=== PATIENT | female | born 1960 | race Caucasian/White ===

== ENCOUNTER 2018-07-03 19:50 | Emergency (ER) | payer BC, OTHER ==
[~2018-07-03] VITALS: Ht 162.6 cm; Wt 73.9 kg
--- OUTSIDE RECORDS SUMMARY | 2018-07-03 19:56 | XMS REPORT ---
Author Author TOÑO PIÑA [facility] Address [address] [place] [address] Care Team Providers [facility] Supervisor Name Role Phone TOÑO PIÑA Unavailable PROBLEMS Type Condition ICD9-CM Code UZG09-CU Code Onset Dates Condition Status SNOMED Code Problem Mixed hyperlipidemia E78.2 Active 709702053 Problem Non-seasonal allergic rhinitis, unspecified chronicity, unspecified trigger J30.89 Active 03859917 Problem Acquired hypothyroidism E03.9 Active 918994236 Problem Hx of hysterectomy, total Z90.710 Active 427787003 ALLERGIES No Information ENCOUNTERS Encounter Location Date Diagnosis [place] [id number] [place] [id number] May, [address] [id number] May, [address] [id number] Jan, Screening for tuberculosis Z11.1 and Visit for TB skin test Z11.1 [place] [id number] [place] [address] [id number] Nov, Acquired hypothyroidism E03.9 ; Screening for tuberculosis Z11.1 ; Mixed hyperlipidemia E78.2 ; Non-seasonal allergic rhinitis, unspecified chronicity, unspecified trigger J30.89 and Wellness examination Z00.00 [place] [id number] [place] [address] [id number] Jan, Acquired hypothyroidism E03.9 ; Mixed hyperlipidemia E78.2 ; Elevated serum creatinine R79.89 and Non-seasonal allergic rhinitis, unspecified chronicity, unspecified trigger J30.89 [place] [id number] [place] [address] [id number] Dec, [address] [id number] Aug, [facility] [place] [address] [place] [address] [id number] [place] [address] [id number] Aug, Hypothyroidism, unspecified E03.9 [facility] [place] [address] [id number] Jul, Hypothyroidism, unspecified E03.9 [facility] [place] [address] [id number] Jul, Acquired hypothyroidism E03.9 and Elevated serum creatinine R79.89 [facility] [place] [address] [id number] Jul, Acquired hypothyroidism E03.9 ; H/O urinary frequency Z87.898 ; Hx of hysterectomy, total Z90.710 and Elevated serum creatinine R79.89 [facility] [place] [address] [id number] Jun, Urge incontinence of urine N39.41 [facility] [place] [address] [id number] Feb, [facility] [place] [address] [id number] Feb, Decreased GFR R94.4 [facility] [place] [address] [id number] Feb, [facility] [place] [address] [id number] Jan, Hypothyroidism, unspecified type E03.9 [facility] [place] [address] [id number] Dec, Urge incontinence of urine N39.41 [facility] [place] [address] [id number] Nov, Decreased GFR R94.4 [facility] [place] [address] [id number] Nov, Hypothyroidism, unspecified type E03.9 [facility] [place] [address] [id number] [place] [address] [id number] Nov, Hypothyroidism, unspecified type E03.9 and Overweight E66.3 [facility] [address] [id number] Sep, Bilateral impacted cerumen H61.23 [facility] [address] [id number] [place] [address] [id number] May, Urge incontinence of urine N39.41 and Hypothyroidism, unspecified type E03.9 [facility] [address] [id number] [place] [address] [id number] Mar, Encounter for immunization Z23 [facility] [address] [address] Mar, [facility] [address] [place] [address] [id number] [place] [address] [id number] Feb, [address] [id number] Nov, Follow-up exam V67.9 ; Reflux 530.81 and Urinary incontinence 788.30 [facility] [address] [place] [id number] [place] [address] [id number] Nov, Unspecified hypothyroidism 244.9 [facility] [address] [id number] [place] [address] [id number] October, Unspecified hypothyroidism 244.9 [facility] [address] [address] Sep, [facility] [address] [place] [id number] [place] [address]- [address] Sep, [facility] [id number] [place] [address]- 2626 Jun, [facility] [address] [id number] [place] [address] [id number] Jun, [facility] [id number] [place] [address]- [address] Jun, [facility] [id number] [place] [address] 25[address] May, [facility] [id number] [place] [address] [id number] May, [facility] [address] [id number] May, [facility] [address] [id number] [place] [id number] May, [facility] [place] [facility] [address] [id number] [place] [address] May, [facility] [place] [facility] [address] [facility] [id number] [place] [address] May, [facility] [address] [id number] [place] [id number] Apr, [facility] [place] [facility] [address] [facility] [id number] [place] [address] Apr, [facility] [place] [facility] [address] [facility] [id number] [place] [address] Apr, [facility] [address] [id number] [place] [id number] Apr, [facility] [place] [facility] [address] [facility] [id number] [place] [address]- [address] Apr, [facility] [address] [id number] [place] [id number] Mar, [facility] [place] [facility] [address] [facility] [id number] [place] [address] Mar, [facility] [address] [id number] [place] [id number] Dec, [facility] [place] [facility] [address] [facility] [id number] [address] Dec, [facility] [address] [id number] [place] [id number] Dec, [facility] [place] [facility] [address] [facility] [id number] [place] [address]- [address] Dec, [facility] [place] [facility] [address] [facility] [id number] [place] [address]- [address] Nov, [facility] [address] [id number] [place] [id number] Nov, [facility] [address] [id number] [place] [id number] October, [facility] [address] [facility] [id number] [place] [address]- [address] October, [facility] [place] [facility] [address] [place] [id number] [place] [address]- [address] Sep, [facility] [address] [facility] [id number] [place] [id number] Sep, [facility] [place] [facility] [address] [facility] [id number] [address] Sep, [facility] [place] [facility] [address] [facility] [id number] [place] [address]- [address] Jul, [facility] [address] [place] [id number] [place] [id number] May, [facility] [place] [facility] [address]00565100[place] [address] May, [facility] [place] [facility] [address]00565100[place] [address] May, [facility] [place] [facility] [address] [place] [id number] [address] May, [facility] [address] [facility] [id number] [place] [id number] May, [facility] [place] [facility] [address] [place] [id number] [address] May, [facility] [address] [facility] [id number] [place] [id number] Apr, [facility] [place] [facility] [address] [facility] [id number] [address]- [address] Apr, [facility] [place] [facility] [address] [facility] [id number] [place] [address] Mar, [facility] [address] [facility] [id number] [place] [id number] Mar, [facility] [place] [facility] [address] [place] [id number] [address] Mar, [facility] [address] [facility] [id number] [place] [address]- [address] Mar, [facility] [address] [id number] [place] [id number] Mar, [facility] [address] [id number] [place] [id number] Jan, [facility] [address] [id number] [place] [id number] Jan, [facility] [address] [id number] [place] [id number] Dec, [facility] [address] [id number] [place] [address] Dec, [facility] [address] [id number] [place] [id number] Nov, [facility] [address] [id number] [place] [address] Nov, [facility] [address] [id number] [place] [id number] Nov, [facility] [address] [id number] [place] [address] October, [facility] [address] [id number] [place] [address] October, [facility] [address] [id number] [place] [id number] Sep, [facility] [address] [facility] [id number] [address]- [address] May, [facility] [place] [facility] [address] [facility] [id number] [place] [address]- [address] May, [facility] [address] [id number] [place]ANC[place] [id number] Apr, [facility] [address] [facility] [id number] [place] [address]- [address] Apr, [facility] [address] [id number] [place] [id number] Mar, [facility] [address] [place] [id number] [address]- [address] Mar, [facility] [address]00565100[place] [address]- [address] Mar, [facility] [id number] [place] [id number] Feb, [facility] [id number] [place] [id number] Feb, [facility] [address] [id number] [place] [address] Jan, [facility] [address] [id number] [place] [id number] Jan, [facility] [id number] [place] [id number] Jan, [facility] [place] [id number] [place] [id number] Dec, [facility] [id number] [place] [address]- [address] Dec, [facility] [place] [id number] [place] [id number] Nov, [facility] [place] [id number] [place] [id number] October, [facility] [address] [id number] [place] [address]24- 2546 Apr, [facility] [address] [place] [address]95- [address] Nov, [facility] [id number] [place] [address]- 2546 Apr, [facility] [address]00565100[place] [address] 2546 Jan, IMMUNIZATIONS No Known Immunizations SOCIAL HISTORY Never Assessed REASON FOR VISIT Medication refill PLAN OF CARE VITAL SIGNS MEDICATIONS Medication Instructions Dosage Frequency Start Date End Date Duration Status Synthroid 88 MCG Orally Once a day 1 tablet on an empty stomach in the morning 24h 30 days Active RESULTS No Results PROCEDURES No Known procedures INSTRUCTIONS MEDICATIONS ADMINISTERED No Known Medications MEDICAL (GENERAL) HISTORY Type Description Date Medical History Hypothyroidism Surgical History skin graphs at age 6 [facility] Surgical History hysterectomy, total with bilateral salpingo-oophorectomy (BSO ) s/p benign tumor Hospitalization History childbirth, surgery
--- OUTSIDE RECORDS SUMMARY | 2018-07-03 19:56 | XMS REPORT ---
Author Author TOÑO PIÑA [facility] Address [address] [place] [address] Care Team Providers Care Poolroom/Poolhall Manager Name Role Phone TOÑO PIÑA Unavailable PROBLEMS Type Condition ICD9-CM Code GAM59-DA Code Onset Dates Condition Status SNOMED Code Problem Mixed hyperlipidemia E78.2 Active 826320772 Problem Non-seasonal allergic rhinitis, unspecified chronicity, unspecified trigger J30.89 Active 36884423 Problem Acquired hypothyroidism E03.9 Active 083299599 ALLERGIES No Known Allergies ENCOUNTERS Encounter Location Date Diagnosis [address] [id number] May, Acquired hypothyroidism E03.9 ; Mixed hyperlipidemia E78.2 and Non- seasonal allergic rhinitis, unspecified chronicity, unspecified trigger J30.89 [place] [id number] [place] [address] [id number] May, [address] [id number] Jan, Screening for tuberculosis Z11.1 and Visit for TB skin test Z11.1 [place] [id number] [place] [address] [id number] Nov, Acquired hypothyroidism E03.9 ; Screening for tuberculosis Z11.1 ; Mixed hyperlipidemia E78.2 ; Non-seasonal allergic rhinitis, unspecified chronicity, unspecified trigger J30.89 and Wellness examination Z00.00 [place] [id number] [place] [address] [id number] Jan, Acquired hypothyroidism E03.9 ; Mixed hyperlipidemia E78.2 ; Elevated serum creatinine R79.89 and Non-seasonal allergic rhinitis, unspecified chronicity, unspecified trigger J30.89 [place] [id number] [place] [address] [id number] Dec, [address] [place] [address] [id number] Aug, [facility] [place] [address] [place] [id number] [place] [address] [id number] Aug, Hypothyroidism, unspecified E03.9 [facility] [place] [address] [place] [id number] [place] [address] [id number] Jul, Hypothyroidism, unspecified E03.9 [facility] [place] [address] [id number] [place] [address] [id number] Jul, Acquired hypothyroidism E03.9 and Elevated serum creatinine R79.89 [facility] [place] [address] [place] [id number] [place] [address] [id number] Jul, Acquired hypothyroidism E03.9 ; H/O urinary frequency Z87.898 ; Hx of hysterectomy, total Z90.710 and Elevated serum creatinine R79.89 [facility] [place] [address] [address] [id number] [place] [address] [id number] Jun, Urge incontinence of urine N39.41 [facility] [place] [address] [id number] Feb, [facility] [place] [address] [id number] Feb, Decreased GFR R94.4 [facility] [place] [address] [place] [id number] [place] [address] [id number] Feb, [facility] [place] [address] [id number] Jan, Hypothyroidism, unspecified type E03.9 [facility] [place] [address] [place] [id number] [place] [address] [id number] Dec, Urge incontinence of urine N39.41 [facility] [place] [address] [id number] [place] [address] [id number] Nov, Decreased GFR R94.4 [facility] [place] [address] [address] [id number] [place] [address] [id number] Nov, Hypothyroidism, unspecified type E03.9 [facility] [place] [address] [place] [id number] [place] [address] [id number] Nov, Hypothyroidism, unspecified type E03.9 and Overweight E66.3 [facility] [address] [place] [id number] [place] [address] [id number] Sep, Bilateral impacted cerumen H61.[address] [id number] May, Urge incontinence of urine N39.41 and Hypothyroidism, unspecified type E03.[address] [id number] Mar, Encounter for immunization Z23 [facility] [address] [address] Mar, [place] [id number] [place] [address] [id number] Feb, [address] [id number] Nov, Follow-up exam V67.9 ; Reflux 530.81 and Urinary incontinence 788.30 [facility] [address] [id number] Nov, Unspecified hypothyroidism 244.9 [place] [id number] [place] [address] [id number] October, Unspecified hypothyroidism 244.9 [facility] [address] [address] Sep, [facility] [address] [address] Sep, [facility] [address] [address] Jun, [facility] [address] [place] [id number] [place] [address] [id number] Jun, [facility] [address] [address] Jun, [facility] [address] [address] May, [place] [id number] [place] [address] [id number] May, [facility] [place] [address] [id number] [place] [id number] May, [facility] [place] [address] [id number] [place] [id number] May, [facility] [place] [facility] [address] [facility] [id number] [place] [address]- [address] May, [facility] [place] [facility] [address] [facility] [id number] [place] [address]- [address] May, [facility] [place] [address] [id number] [place] [id number] Apr, [facility] [place] [facility] [address] [facility] [id number] [place] [address]- [address] Apr, [facility] [place] [facility] [address] [facility] [id number] [place] [address] Apr, [facility] [place] [address] [facility] [id number] [id number] Apr, [facility] [place] [facility] [address] [facility] [id number] [address] Apr, [facility] [place] [address] [facility] [id number][place] [id number] Mar, [facility] [place] [facility] [address] [facility] [id number] [place] [address] Mar, [facility] [place] [address] [id number][place] [id number] Dec, [facility] [place] [facility] [address] [facility] [id number] [place] [address] Dec, [facility] [place] [address] [id number][place] [id number] Dec, [facility] [place] [facility] [address] [facility] [id number] [place] [address] Dec, [facility] [place] [facility] [address] [facility] [id number] [place] [address] Nov, [facility] [place] [address] [facility] [id number][place] [id number] Nov, [facility] [place] [address] [facility] [id number] [place] [id number] October, [facility] [place] [facility] [address] [facility] [id number] [place] [address]- [address] October, [facility] [place] [facility] [address] [facility] [id number] [place] [address]- [address] Sep, [facility] [address] [facility] [id number][place] [id number] Sep, [facility] [place] [facility] [address] [facility] [id number] [place] [address]- 25[address] Sep, [facility] [place] [facility] [address] [facility] [id number] [place] [address]- [address] Jul, [facility] [address] [id number] [id number] May, [facility] [place] [facility] [address]65100[place] [address] May, [facility] [place] [facility] [address] [facility] [id number] [place] [address]- [address] May, [facility] [place] [facility] [address] [place] [id number] [address] May, [facility] [place] [address] [facility] [id number][place] [id number] May, [facility] [place] [facility] [address] [place] [id number] [address]- [address] May, [facility] [place] [address] [facility] [id number][place] [id number] Apr, [facility] [place] [facility] [address] [facility] [id number] [place] [address]- [address] Apr, [facility] [place] [facility] [address] [facility] [id number] [place] [address]- [address] Mar, [facility] [place] [address] [facility] [id number][place] [id number] Mar, [facility] [place] [facility] [address] [place] [id number] [address]- [address] Mar, [facility] [address] [facility] [id number] [place] [address]- [address] Mar, [facility] [place] [address] [id number] [place] [id number] Mar, [facility] [place] [address] [id number] [place] [id number] Jan, [facility] [place] [address] [id number] [place] [id number] Jan, [facility] [place] [address] [id number] [place] [id number] Dec, [facility] [place] [address] [id number] [place] [id number] Dec, [facility] [place] [address] [id number] [place] [id number] Nov, [facility] [place] [address] [id number] [place] [id number] Nov, [facility] [place] [address] [id number] [place] [id number] Nov, [facility] [place] [address] [id number] [place] [id number] October, [facility] [place] [address] [id number] [place] [id number] October, [facility] [place] [address] [id number] [place] [address] Sep, [facility] [address] [facility] [id number] [place] [address]- [address] May, [facility] [place] [facility] [address] [facility] [id number] [place] [address]- 25[address] May, [facility] [place] [address] [id number] [place] [id number] Apr, [facility] [place] [facility] [address] [facility] [id number] [place] [address]- 25[address] Apr, [facility] [address] [id number] [place] [id number] Mar, [facility] [address] [address] Mar, [facility] [address] [place] [id number] [place] [address] Mar, [facility] [place] [address] [id number] [place] [id number] Feb, [facility] [place] [address] [id number] [place] [id number] Feb, [facility] [place] [address] [id number] [place] [id number] Jan, [facility] [place] [address] [id number] [place] [id number] Jan, [facility] [place] [address] [id number] [place] [id number] Jan, [facility] [place] [id number] [place] [id number] Dec, [facility] [id number] [place] [address]- [address] Dec, [facility] [id number] [id number] Nov, [facility] [place] [id number] [place] [address] [id number] October, [facility] [address] [address] Apr, [facility] [id number] [place] [address]- [address] Nov, [facility] [id number] [place] [address]- 6[address] Apr, [facility] [address] [place] [id number] [place] [address]- [address] Jan, IMMUNIZATIONS No Known Immunizations SOCIAL HISTORY Never Assessed REASON FOR VISIT New provider visit- thyroid disorder, med refill Avi BRYSON PLAN OF CARE Activity Details Follow Up 3 months or as indicated by lab Reason:[facility] VITAL SIGNS Height 64.5 in 2018-06-05 Weight 166 lbs 2018-06-05 Temperature 97.4 degrees Fahrenheit 2018-06-05 Heart Rate 76 bpm 2018-06-05 Respiratory Rate 18 2018-06-05 BMI 28.05 kg/m2 2018-06-05 Blood pressure systolic 122 mmHg 2018-06-05 Blood pressure diastolic 68 mmHg 2018-06-05 MEDICATIONS Medication Instructions Dosage Frequency Start Date End Date Duration Status Synthroid 88 MCG Orally Once a day 1 tablet on an empty stomach in the morning 24h Active Zantac 150 MG Orally Once a day 1 tablet at bedtime 24h Active Flonase 50 MCG/DOSE Nasally Once a day 1 spray in each nostril 24h Jul, Active RESULTS No Results PROCEDURES No Known procedures INSTRUCTIONS MEDICATIONS ADMINISTERED No Known Medications MEDICAL (GENERAL) HISTORY Type Description Date Medical History Hypothyroidism Medical History Hx of hysterectomy, total Surgical History skin graphs at age 6 from [facility] Surgical History hysterectomy, total with bilateral salpingo-oophorectomy (BSO ) s/p benign tumor Hospitalization History childbirth, surgery
--- OUTSIDE RECORDS SUMMARY | 2018-07-03 19:56 | XMS REPORT ---
Author Author JOHN FREDERICK Organization [facility] Address [address] [place] [address] Care Team Providers Care Rotor Blade Installer Name Role Phone MELISSA CRYSTALELIZ JOHN Unavailable PROBLEMS Type Condition ICD9-CM Code KQK19-OT Code Onset Dates Condition Status SNOMED Code Problem Mixed hyperlipidemia E78.2 Active 732459109 Problem Non-seasonal allergic rhinitis, unspecified chronicity, unspecified trigger J30.89 Active 79616479 Problem Acquired hypothyroidism E03.9 Active 951276322 Problem Hx of hysterectomy, total Z90.710 Active 926113286 ALLERGIES No Information ENCOUNTERS Encounter Location Date Diagnosis [place] [id number] [place] [address] [id number] Jan, Screening for tuberculosis Z11.1 and Visit for TB skin test Z11.1 [place] [id number] [place] [address] [id number] Nov, Acquired hypothyroidism E03.9 ; Screening for tuberculosis Z11.1 ; Mixed hyperlipidemia E78.2 ; Non-seasonal allergic rhinitis, unspecified chronicity, unspecified trigger J30.89 and Wellness examination Z00.[address] [place] [address] [id number] Jan, Acquired hypothyroidism E03.9 ; Mixed hyperlipidemia E78.2 ; Elevated serum creatinine R79.89 and Non-seasonal allergic rhinitis, unspecified chronicity, unspecified trigger J30.89 [address] [place] [address] [id number] Dec, [address] [place] [address] [id number] Aug, [address] [place] [address] [id number] Aug, Hypothyroidism, unspecified E03.9 [place] [id number] [place] [address] [id number] Jul, Hypothyroidism, unspecified E03.9 [facility] [place] [address] [id number] Jul, Acquired hypothyroidism E03.9 and Elevated serum creatinine R79.89 [facility] [place] [address] [place] [id number] [place] [address] [id number] Jul, Acquired hypothyroidism E03.9 ; H/O urinary frequency Z87.898 ; Hx of hysterectomy, total Z90.710 and Elevated serum creatinine R79.89 [facility] [place] [address] [id number] [place] [address] [id number] Jun, Urge incontinence of urine N39.41 [facility] [place] [address] [id number] Feb, [facility] [place] [address] [id number] Feb, Decreased GFR R94.4 [facility] [place] [address] [id number] Feb, [facility] [place] [address] [id number] Jan, Hypothyroidism, unspecified type E03.9 [facility] [address] [id number] Dec, Urge incontinence of urine N39.41 [facility] [address] [id number] Nov, Decreased GFR R94.4 [facility] [place] [address] [id number] Nov, Hypothyroidism, unspecified type E03.9 [facility] [place] [address] [id number] [place] [address] [id number] Nov, Hypothyroidism, unspecified type E03.9 and Overweight E66.3 [facility] [address] [id number] Sep, Bilateral impacted cerumen H61.23 [facility] [address] [id number] May, Urge incontinence of urine N39.41 and Hypothyroidism, unspecified type E03.9 [facility] [place] [id number] [place] [address] [id number] Mar, Encounter for immunization Z23 [facility] [id number] [place] [address] [id number] 2546 Mar, [facility] [place] [id number] [place] [address] [id number] Feb, [facility] [place] [address] [id number] Nov, Follow-up exam V67.9 ; Reflux 530.81 and Urinary incontinence 788.30 [facility] [place] [address] [id number] Nov, Unspecified hypothyroidism 244.9 [facility] [id number] [place] [address] [id number] October, Unspecified hypothyroidism 244.9 [facility] [id number] [place] [address] 72667- 0556 Sep, [facility] [id number] [place] [address] 40418- 3825 Sep, [facility] [id number] [place] [address] 74208- 4340 Jun, [facility] [id number] [place] [address] [id number] Jun, [facility] [id number] [place] [address]65- [address] Jun, [facility] [id number] [place] [address] [id number] 2545 May, [facility] [id number] [place] [address] [id number] May, [facility] [id number] [place] [address] [id number] May, [facility] [id number] [place] [address] [id number] May, [facility] [place] [facility] [address] [id number] [place] [address] May, [facility] [place] [facility] [address] [facility] [id number] [place] [address] May, [facility] [place] [address] [id number] [place] [id number] Apr, [facility] [place] [facility] [address] [facility] [id number], [place] [address] 2546 Apr, [facility] [place] [facility] [address] [facility] [id number] [place] [address] 2546 Apr, [facility] [place] [address] [facility] [id number] [place] [id number] Apr, [facility] [place] [facility] [address] [facility] [id number] [place] [address] 8[address] Apr, [facility] [place] [address] [facility] [id number][place] [id number] Mar, [facility] [place] [facility] [address] [facility] [id number], [place] [address] Mar, [facility] [place] [address] [id number] [place] [id number] Dec, [facility] [place] [facility] [address] [facility] [id number], [place] [address] Dec, [facility] [place] [address] [facility] [id number][place] [id number] Dec, [facility] [place] [facility] [address] [facility] [id number], [place] [address] Dec, [facility] [place] [facility] [address] [facility] [id number] [place] [address]- 88[address] Nov, [facility] [place] [address] [id number] [place] [id number] Nov, [facility] [place] [address] [id number] [place] [id number] October, [facility] [place] [facility] [address] [facility] [id number], [place] [address] October, [facility] [place] [facility] [address] [id number] [place] [address]- 2546 Sep, [facility] [place] [address] [facility] [id number] [place] [id number] Sep, [facility] [place] [facility] [address] [facility] [id number] [place] [address]- 2546 Sep, [facility] [place] [facility] [address] [facility] [id number] [place] [address]- 25[address] Jul, [facility] [place] [address] [facility] [id number] [place] [id number] May, [facility] [place] [facility] [address] [facility] [id number] [place] [address]- 2546 May, [facility] [place] [facility] [address] [facility] [id number] [place] [address]- 2546 May, [facility] [place] [facility] [address] [id number], [place] [address] May, [facility] [place] [address] [facility] [id number][place] [phone] May, [facility] [place] [facility] [address] [id number], [place] [address] 25[address] May, [facility] [place] [address] [id number][place] [id number] Apr, [facility] [place] [facility] [address] [facility] [id number], [place] [address]- 2546 Apr, [facility] [place] [facility] [address] [facility] [id number], [place] [address]- 2546 Mar, [facility] [place] [address] [facility] [id number][place] [id number] Mar, [facility] [place] [facility] [address] [facility] [id number], [place] [address]- 2546 Mar, [facility] [place] [facility] [address] [facility] [id number], [place] [address]- 2546 Mar, [facility] [place] [address] [facility] [id number] [place] [id number] Mar, [facility] [place] [address] [id number] [place] [id number] Jan, [facility] [place] [address] [id number] [place] [id number] Jan, [facility] [place] [address] [id number] [place] [id number] Dec, [facility] [place] [address] [id number] [place] [id number] Dec, [facility] [place] [address] [id number] [place] [id number] Nov, [facility] [place] [address] [id number] [place] [id number] Nov, [facility] [place] [address] [id number] [place] [id number] Nov, [facility] [address] [id number] [place] [id number] October, [facility] [address] [id number] [place] [id number] October, [facility] [place] [address] [id number] [place] [id number] Sep, [facility] [address], [place] [address] May, [facility] [place] [facility] [address] [facility] [id number], [place] [address] May, [facility] [address] [id number] [place] [id number] Apr, [facility] [place] [facility] [address] [facility] [id number], [place] [address]- [address] Apr, [facility] [address] [id number] [place] [id number] Mar, [facility] [place] [facility] [address] [facility] [id number], [place] [address] Mar, [facility] [place] [facility] [address], [place] [address] Mar, [facility] [address] [id number], [place] [id number] Feb, [facility] [place] [address] [id number][place] [id number] Feb, [facility] [place] [address] [id number] [place] [id number] Jan, [facility] [place] [address] [id number] [place] [id number] Jan, [facility] [place] [address] [id number] [place] [id number] Jan, [facility] [place] [address] [id number] [place] [id number] Dec, [facility] [id number] [place] [address] 18083- 2546 Dec, [facility] [id number], [place] [id number] Nov, [facility] [id number], [place] [id number] October, [facility] [id number] [place] [address] 01227- 6059 Apr, [facility] [id number] [place] [address] 24679- 4677 Nov, [facility] [id number] [place] [address] 37813- 5866 Apr, [facility] [id number] [place] [address] 31755 2545 Jan, IMMUNIZATIONS No Known Immunizations SOCIAL HISTORY Never Assessed REASON FOR VISIT TB TEST Slick RN PLAN OF CARE Activity Details Follow Up 48-72 hours Reason: VITAL SIGNS MEDICATIONS Unknown Medications RESULTS No Results PROCEDURES Procedure Date Ordered Result Body Site TB INTRADERMAL TEST Feb 09, 2018 TB INTRADERMAL TEST Feb 09, 2018 INSTRUCTIONS MEDICATIONS ADMINISTERED No Known Medications MEDICAL (GENERAL) HISTORY Type Description Date Medical History Hypothyroidism Surgical History skin graphs at age 6 from [facility] Surgical History hysterectomy, total with bilateral salpingo-oophorectomy (BSO ) s/p benign tumor Hospitalization History childbirth, surgery
--- OUTSIDE RECORDS SUMMARY | 2018-07-03 19:57 | XMS REPORT ---
Author Author NALDO OLIVEROS [facility] eClinical[employer] Address Unknown Phone Unavailable Care Team Providers Care Progressive Assembler And Fitter Name Role Phone NALDO OLIVEROS Unavailable Allergies No Known Allergies Problems Problem Type Condition Code Onset Dates Condition Status Problem Overweight 278.02 Active Assessment Urge incontinence of urine N39.41 Active Problem Health examination of defined subpopulation V70.5 Active Problem Impacted cerumen 380.4 Active Problem Unspecified breast screening V76.10 Active Problem Unspecified hypothyroidism 244.9 Active Problem Unspecified peripheral vertigo 386.10 Active Problem Other abnormal blood chemistry 790.6 Active Problem Dysfunction of Eustachian tube 381.81 Active Medications Medication Code System Code Instructions Start Date End Date Status Dosage Oxybutynin Chloride [facility] [address]-88 5 mg Orally Twice a day 1 tablet Results No Known Results Summary Purpose eClinicalWorks Submission
--- OUTSIDE RECORDS SUMMARY | 2018-07-03 19:57 | XMS REPORT ---
Author Author NALDO OLIVEROS [facility] eClinicalWorks Address Unknown Phone Unavailable Care Team Providers Care Executive Talent Acquisition Consultant Name Role Phone NALDO OLIVEROS CP Unavailable Allergies, Adverse Reactions, Alerts Substance Reaction Event Type N.K.D.A. Info Not Available Non Drug Allergy Problems Problem Type Condition Code Onset Dates Condition Status Problem Overweight 278.02 Active Assessment Bilateral impacted cerumen H61.23 Active Problem Health examination of defined subpopulation V70.5 Active Problem Impacted cerumen 380.4 Active Problem Unspecified breast screening V76.10 Active Problem Unspecified hypothyroidism 244.9 Active Problem Unspecified peripheral vertigo 386.10 Active Problem Other abnormal blood chemistry 790.6 Active Problem Dysfunction of Eustachian tube 381.81 Active Medications Medication Code System Code Instructions Start Date End Date Status Dosage Levothyroxine Sodium [facility] [address]-64 50 MCG Orally Once a day November 17, 2014 1 tablet Oxybutynin Chloride [facility] [address]-95 5 MG Orally Twice a day 1 tablet Procedures Procedure Coding System Code Date Office Visit, Est Pt., Level 3 CPT-4 11908 October 12, 2015 Vital Signs Date/Time: October 12, 2015 Temperature 97.6 F Weight 150.4 lbs Height 64.5 in BMI 25.41 Index Blood Pressure Diastolic 70 mmHg Blood Pressure Systolic 124 mmHg Cardiac Monitoring Heart Rate 90 bpm Results No Known Results Summary Purpose eClinicalWorks Submission
--- OUTSIDE RECORDS SUMMARY | 2018-07-03 19:57 | XMS REPORT ---
Author Author NALDO OLIVEROS [facility] eClinicalWorks Address Unknown Phone Unavailable Care Team Providers Care Voip Engineer Name Role Phone NALDO OLIVEROS Unavailable Allergies No Known Allergies Problems Problem Type Condition Code Onset Dates Condition Status Problem Overweight 278.02 Active Problem Health examination of defined subpopulation V70.5 Active Problem Impacted cerumen 380.4 Active Problem Unspecified breast screening V76.10 Active Problem Unspecified hypothyroidism 244.9 Active Problem Unspecified peripheral vertigo 386.10 Active Problem Other abnormal blood chemistry 790.6 Active Problem Dysfunction of Eustachian tube 381.81 Active Medications Medication Code System Code Instructions Start Date End Date Status Dosage Oxybutynin Chloride [facility] [address]-68 5 MG Orally Twice a day December 07, 2014 Jun 06, 2015 1 tablet Results No Known Results Summary Purpose eClinicalWorks Submission
--- OUTSIDE RECORDS SUMMARY | 2018-07-03 19:57 | XMS REPORT ---
Author Author ANDREIA MARVIN Organization [facility] Address [address] [place] [address] Care Team Providers Care Vice President Of Software Engineering Name Role Phone ANDREIA MARVIN Unavailable PROBLEMS Type Condition ICD9-CM Code AHV68-TL Code Onset Dates Condition Status SNOMED Code Problem Other abnormal blood chemistry 790.6 Active 878144116 Problem Dysfunction of Eustachian tube 381.81 Active 87842492 Problem Unspecified peripheral vertigo 386.10 Active 90244702 Problem Unspecified breast screening V76.10 Active 790485667 Problem Health examination of defined subpopulation V70.5 Active 239022736 Problem Mixed hyperlipidemia E78.2 Active 405611776 Problem Acquired hypothyroidism E03.9 Active 036170753 Problem Overweight 278.02 Active 861989595 Problem Impacted cerumen 380.4 Active 60920818 Problem Hx of hysterectomy, total Z90.710 Active 867920788 Problem Unspecified hypothyroidism 244.9 Active 32672378 ALLERGIES No Information SOCIAL HISTORY Never Assessed PLAN OF CARE VITAL SIGNS MEDICATIONS No Known Medications RESULTS No Results PROCEDURES Procedure Date Ordered Result Body Site ASSAY THYROID STIM HORMONE August 28, 2016 VENIPUNCT, ROUTINE* August 28, 2016 IMMUNIZATIONS No Known Immunizations MEDICAL (GENERAL) HISTORY Type Description Date Medical History Hypothyroidism Surgical History skin graphs at age 6 from [facility] Surgical History hysterectomy, total with bilateral salpingo-oophorectomy (BSO ) s/p benign tumor Hospitalization History childbirth, surgery
--- OUTSIDE RECORDS SUMMARY | 2018-07-03 19:57 | XMS REPORT ---
Author Author ANDREIA MARVIN Organization [facility] Address [address] [place] [address] Care Team Providers Care Entertainment Production Professional Name Role Phone ANDREIA MARVIN Unavailable PROBLEMS Type Condition ICD9-CM Code MAP84-CV Code Onset Dates Condition Status SNOMED Code Problem Other abnormal blood chemistry 790.6 Active 167267742 Problem Dysfunction of Eustachian tube 381.81 Active 03168563 Problem Unspecified peripheral vertigo 386.10 Active 97108819 Problem Unspecified breast screening V76.10 Active 424400834 Problem Health examination of defined subpopulation V70.5 Active 177717960 Problem Mixed hyperlipidemia E78.2 Active 802849359 Problem Acquired hypothyroidism E03.9 Active 455511456 Problem Overweight 278.02 Active 060849768 Problem Impacted cerumen 380.4 Active 03646126 Problem Hx of hysterectomy, total Z90.710 Active 584583255 Problem Unspecified hypothyroidism 244.9 Active 15207487 ALLERGIES No Known Allergies SOCIAL HISTORY No smoking Hx information available PLAN OF CARE VITAL SIGNS MEDICATIONS No Known Medications RESULTS Name Result Date Reference Range TSH 2016-07-31 TSH 4.570 0.450-4.500 CMP 2016-07-31 Glucose, Serum 97 65-99 BUN 20 6-24 Creatinine, Serum 1.00 0.57-1.00 eGFR If NonAfricn Am 64 >59 eGFR If Africn Am 73 >59 BUN/Creatinine Ratio 20 9-23 Sodium, Serum 141 134-144 Potassium, Serum 4.1 3.5-5.2 Chloride, Serum 101 96-106 Carbon Dioxide, Total 29 18-29 Calcium, Serum 9.3 8.7-10.2 Protein, Total, Serum 7.4 6.0-8.5 Albumin, Serum 4.5 3.5-5.5 Globulin, Total 2.9 1.5-4.5 A/G Ratio 1.6 1.1-2.5 Bilirubin, Total 0.4 0.0-1.2 Alkaline Phosphatase, S 105 39-117 AST (SGOT) 22 0-40 ALT (SGPT) 14 0-32 No Test Indicated 2016-07-31 . Dear Doctor, PROCEDURES Procedure Date Ordered Related Diagnosis Body Site ASSAY THYROID STIM HORMONE Jul 31, 2016 COMPREHEN METABOLIC PANEL Jul 31, 2016 VENIPUNCT, ROUTINE* Jul 31, 2016 IMMUNIZATIONS No Known Immunizations
--- OUTSIDE RECORDS SUMMARY | 2018-07-03 19:57 | XMS REPORT ---
Author Author JOHN FREDERICK Organization [employer] Address Unknown Phone Unavailable Care Team Providers Care Processor Grain Name Role Phone JOHN FREDERICK Unavailable Allergies No Known Allergies Problems Problem Type Condition ICD-9 Code Onset Dates Condition Status Problem Overweight 278.02 Active Problem Health examination of defined subpopulation V70.5 Active Problem Impacted cerumen 380.4 Active Problem Unspecified breast screening V76.10 Active Problem Unspecified hypothyroidism 244.9 Active Problem Unspecified peripheral vertigo 386.10 Active Problem Other abnormal blood chemistry 790.6 Active Problem Dysfunction of Eustachian tube 381.81 Active Medications No Known Medications Results No Known Results Summary Purpose eClinicalWorks Submission
--- OUTSIDE RECORDS SUMMARY | 2018-07-03 19:57 | XMS REPORT ---
Author Author NALDO OLIVEORS [employer] Address Unknown Phone Unavailable Care Team Providers Care Adaptive Physical Educator Name Role Phone NALDO OLIVEROS Unavailable Allergies No Known Allergies Problems Problem Type Condition Code Onset Dates Condition Status Problem Overweight 278.02 Active Assessment Hypothyroidism, unspecified type E03.9 Active Problem Health examination of defined subpopulation V70.5 Active Problem Impacted cerumen 380.4 Active Problem Unspecified breast screening V76.10 Active Problem Unspecified hypothyroidism 244.9 Active Problem Unspecified peripheral vertigo 386.10 Active Problem Other abnormal blood chemistry 790.6 Active Problem Dysfunction of Eustachian tube 381.81 Active Medications No Known Medications Procedures Procedure Coding System Code Date ASSAY OF FREE THYROXINE CPT-4 59237 Feb 16, 2016 VENIPKINDRA, ROUTINE* CPT-4 63223 Feb 16, 2016 ASSAY THYROID STIM HORMONE CPT-4 09822 Feb 16, 2016 Results No Known Results Summary Purpose [employer] Submission
--- OUTSIDE RECORDS SUMMARY | 2018-07-03 19:57 | XMS REPORT ---
Author Author NALDO OLIVEROS [facility] Address [address] [place] [address] Care Team Providers Care Seed Cutter Name Role Phone NALDO OLIVEROS Unavailable PROBLEMS Type Condition ICD9-CM Code [id number] Code Onset Dates Condition Status SNOMED Code Problem Unspecified peripheral vertigo 386.10 Active 29123475 Problem Overweight 278.02 Active 819046328 Problem Unspecified breast screening V76.10 Active 295804596 Problem Health examination of defined subpopulation V70.5 Active 368397287 Problem Dysfunction of Eustachian tube 381.81 Active 67580888 Problem Unspecified hypothyroidism 244.9 Active 34356277 Problem Impacted cerumen 380.4 Active 13504114 Problem Other abnormal blood chemistry 790.6 Active 355876428 ALLERGIES Unknown Allergies SOCIAL HISTORY No smoking Hx information available PLAN OF CARE VITAL SIGNS MEDICATIONS Medication Instructions Dosage Frequency Start Date End Date Duration Status Levothyroxine Sodium 75 MCG Orally Once a day 1 tablet 24h Active RESULTS No Results PROCEDURES No Known procedures IMMUNIZATIONS No Known Immunizations
--- OUTSIDE RECORDS SUMMARY | 2018-07-03 19:57 | XMS REPORT ---
Author Author ANDREIA MARVIN Organization [facility] Address [address] [place] [address] Care Team Providers Care Lead Java Software Engineer Name Role Phone ANDREIA MARVIN Unavailable PROBLEMS Type Condition ICD9-CM Code BFE12-RI Code Onset Dates Condition Status SNOMED Code Problem Other abnormal blood chemistry 790.6 Active 762296185 Problem Dysfunction of Eustachian tube 381.81 Active 53150730 Problem Unspecified peripheral vertigo 386.10 Active 17123071 Problem Unspecified breast screening V76.10 Active 181398248 Problem Health examination of defined subpopulation V70.5 Active 848870667 Problem Mixed hyperlipidemia E78.2 Active 446970723 Problem Acquired hypothyroidism E03.9 Active 019093043 Problem Overweight 278.02 Active 332164254 Problem Impacted cerumen 380.4 Active 88715861 Problem Hx of hysterectomy, total Z90.710 Active 416578902 Problem Unspecified hypothyroidism 244.9 Active 12388049 ALLERGIES No Information SOCIAL HISTORY Never Assessed PLAN OF CARE VITAL SIGNS MEDICATIONS Medication Instructions Dosage Frequency Start Date End Date Duration Status Levothyroxine Sodium 88 MCG Orally Once a day 1 tablet 24h 0 days Active RESULTS No Results PROCEDURES No Known procedures IMMUNIZATIONS No Known Immunizations MEDICAL (GENERAL) HISTORY Type Description Date Medical History Hypothyroidism Surgical History skin graphs at age 6 [place] [facility] Surgical History hysterectomy, total with bilateral salpingo-oophorectomy (BSO ) s/p benign tumor Hospitalization History childbirth, surgery
--- OUTSIDE RECORDS SUMMARY | 2018-07-03 19:57 | XMS REPORT ---
Author Author NALDO OLIVEROS eClinicalWorks Address Unknown Phone Unavailable Care Team Providers Care Rail Bender Name Role Phone NALDO OLIVEROS CP Unavailable Allergies No Known Allergies Problems Problem Type Condition Code Onset Dates Condition Status Problem Overweight 278.02 Active Assessment Encounter for immunization Z23 Active Problem Health examination of defined subpopulation V70.5 Active Problem Impacted cerumen 380.4 Active Problem Unspecified breast screening V76.10 Active Problem Unspecified hypothyroidism 244.9 Active Problem Unspecified peripheral vertigo 386.10 Active Problem Other abnormal blood chemistry 790.6 Active Problem Dysfunction of Eustachian tube 381.81 Active Medications No Known Medications Procedures Procedure Coding System Code Date SINGLE IMMUNIZATION ADMIN CPT-4 06347 Apr 07, 2015 TDAP (BOOSTRIX) CPT-4 86592 Apr 07, 2015 Results No Known Results Immunizations Vaccine Administration Date TDAP (BOOSTRIX) Apr 07, 2015 Summary Purpose eClinicalWorks Submission
--- OUTSIDE RECORDS SUMMARY | 2018-07-03 19:57 | XMS REPORT ---
Author Author ANDREIA MARVIN Organization [facility] Address [address] [place] [address] Care Team Providers Care Sales Secretary Name Role Phone ANDREIA MARVIN Unavailable PROBLEMS Type Condition ICD9-CM Code TOM31-EH Code Onset Dates Condition Status SNOMED Code Problem Mixed hyperlipidemia E78.2 Active 191594772 Problem Non-seasonal allergic rhinitis, unspecified chronicity, unspecified trigger J30.89 Active 56659229 Problem Acquired hypothyroidism E03.9 Active 431911515 Problem Hx of hysterectomy, total Z90.710 Active 692378350 ALLERGIES No Known Allergies ENCOUNTERS Encounter Location Date Diagnosis [place] [id number] [place] [address] [id number] Jan, Screening for tuberculosis Z11.1 and Visit for TB skin test Z11.1 [place] [id number] [place] [address] [id number] Nov, Acquired hypothyroidism E03.9 ; Screening for tuberculosis Z11.1 ; Mixed hyperlipidemia E78.2 ; Non-seasonal allergic rhinitis, unspecified chronicity, unspecified trigger J30.89 and Wellness examination Z00.00 [place] [id number] [place] [address] [id number] Jan, Acquired hypothyroidism E03.9 ; Mixed hyperlipidemia E78.2 ; Elevated serum creatinine R79.89 and Non-seasonal allergic rhinitis, unspecified chronicity, unspecified trigger J30.89 [place] [id number] [place] [address] [id number] Dec, [place] [id number] [place] [address] [id number] Aug, [place] [id number] [place] [address] [id number] Aug, Hypothyroidism, unspecified E03.9 [facility] [id number] [place] [address] [id number] Jul, Hypothyroidism, unspecified E03.9 [facility] [place] [address] [id number] Jul, Acquired hypothyroidism E03.9 and Elevated serum creatinine R79.89 [facility] [place] [address] [id number] Jul, Acquired hypothyroidism E03.9 ; H/O urinary frequency Z87.898 ; Hx of hysterectomy, total Z90.710 and Elevated serum creatinine R79.89 [facility] [address] [id number] Jun, Urge incontinence of urine N39.41 [facility] [place] [address] [id number] Feb, [facility] [address] [id number] Feb, Decreased GFR R94.4 [facility] [place] [address] [id number] Feb, [facility] [place] [address] [id number] Jan, Hypothyroidism, unspecified type E03.9 [facility] [address] [id number] Dec, Urge incontinence of urine N39.41 [facility] [address] [id number] Nov, Decreased GFR R94.4 [facility] [address] [id number] Nov, Hypothyroidism, unspecified type E03.9 [facility] [address] [id number] Nov, Hypothyroidism, unspecified type E03.9 and Overweight E66.3 [facility] [address] [id number] Sep, Bilateral impacted cerumen H61.23 [facility] [address] [id number] May, Urge incontinence of urine N39.41 and Hypothyroidism, unspecified type E03.9 [facility] [id number] [place] [address] [id number] Mar, Encounter for immunization Z23 [facility] [id number] [place] [address]34- [phone] Mar, [facility] [id number] [place] [address] [id number] Feb, [facility] [address] [id number] Nov, Follow-up exam V67.9 ; Reflux 530.81 and Urinary incontinence 788.30 [facility] [id number] [place] [address] [id number] Nov, Unspecified hypothyroidism 244.9 [place] [id number] [place] [address] [id number] October, Unspecified hypothyroidism 244.9 [facility] [id number] [place] [address] [phone]- [phone] Sep, [facility] [id number] [place] [address] [phone]- [phone] Sep, [facility] [id number] [place] [address] [phone]- [phone] Jun, [facility] [id number] [place] [address] [id number] Jun, [facility] [id number] [place] [address] [phone]- [phone] Jun, [facility] [id number] [place] [address] [phone]- [phone] May, [facility] [id number] [place] [address] [id number] May, [facility] [id number] [place] [address] [id number] May, [facility] [id number] [place] [address] [id number] May, [facility] [place] [facility] [address] [id number] [place] [address] May, [facility] [place] [facility] [address] [facility] [id number] [place] [address] May, [facility] [place] [address] [id number] [place] [id number] Apr, [facility] [place] [facility] [address] [facility] [id number] [place] [address] Apr, [facility] [place] [facility] [address] [facility] [id number] [place] [address] 9836 Apr, [facility] [place] [address] [facility] [id number] [place] [id number] Apr, [facility] [place] [facility] [address] [place] [address] [id number] [place] [address] Apr, [facility] [place] [address] [facility] [id number] [place] [id number] Mar, [facility] [place] [facility] [address] [facility] [id number][place] [address] Mar, [facility] [place] [address] [facility] [id number] [place] [phone] Dec, [facility] [place] [facility] [address] [facility] [id number][place] [address] Dec, [facility] [place] [address] [facility] [id number] [place] [id number] Dec, [facility] [place] [facility] [address] [facility] [id number], [place] [address] Dec, [facility] [place] [facility] [address] [facility] [id number] [place] [address] 2546 Nov, [facility] [place] [address] [id number] [place] [id number] Nov, [facility] [place] [address] [id number] [place] [id number] October, [facility] [place] [facility] [address] [facility] [id number][place] [address] October, [facility] [address] [id number] [place] [address]- 2546 Sep, [facility] [place] [address] [facility] [id number] [place] [id number] Sep, [facility] [address] [facility] [id number] [place] [address]- 2546 Sep, [facility] [address] [facility] [id number][place] [address] Jul, [facility] [place] [address] [facility] [id number] [place] [id number] May, [facility] [address] [facility] [id number] [place] [address]- 2546 May, [facility] [address] [facility] [id number][place] [address]- 2546 May, [facility] [address] [facility] [id number][place] [address]- 2546 May, [facility] [place] [address] [facility] [id number] [place] [id number] May, [facility] [address] [facility] [id number], [place] [address]- [address] May, [facility] [place] [address] [place] [address] [id number] [place] [id number] Apr, [facility] [place] [facility] [address] [facility] [id number][place] [address]- 2546 Apr, [facility] [place] [facility] [address] [facility] [id number][place] [address]- 2546 Mar, [facility] [place] [address] [facility] [id number] [place] [phone] Mar, [facility] [place] [facility] [address] [facility] [id number][place] [address]- 2546 Mar, [facility] [place] [facility] [address] [facility] [id number][place] [address]- 2546 Mar, [facility] [place] [address] [id number] [place] [phone] Mar, [facility] [place] [address] [id number] [place] [phone] Jan, [facility] [place] [address] [id number] [place] [id number] Jan, [facility] [place] [address] [id number] [place] [id number] Dec, [facility] [place] [address] [id number] [place] [id number] Dec, [facility] [place] [address] [id number] [place] [id number] Nov, [facility] [place] [address] [id number] [place] [id number] Nov, [facility] [place] [address] [id number] [place] [id number] Nov, [facility] [address] [id number] [place] [phone] October, [facility] [address] [id number] [place] [id number] October, [facility] [address] [id number] [place] [id number] Sep, [facility] [address]00565100[place] [address] May, [facility] [address]00565100[place] [address]- [address] May, [facility] [address] [id number] [place] [id number] Apr, [facility] [place] [facility] [address] [facility] [id number][place] [address]- [address] Apr, [facility] [address] [id number] [place] [id number] Mar, [facility] [place] [facility] [address] [facility] [id number][place] [address]- 3212 Mar, [facility] [place] [facility] [id number] [place] [address] 88974- 3658 Mar, [facility] [address] [place] [id number] [place] [phone] Feb, [facility] [place] [id number] [place] [id number] Feb, [facility] [place] [id number] [place] [id number] Jan, [facility] [place] [address] [id number] [place] [id number] Jan, [facility] [place] [address] [id number] [place] [address] [id number] Jan, [facility] [id number] [place] [id number] Dec, [facility] [id number] [place] [address] 71251- 2546 Dec, [facility] [id number] [place] [id number] Nov, [facility] [id number] [place] [address] [id number] October, [facility] [id number] [place] [address] 04972- 3013 Apr, [facility] [id number] [place] [address] 61168- 7093 Nov, [facility] [id number] [place] [address] 64356- 2726 Apr, [facility] [id number] [place] [address] 16141- 2546 Jan, IMMUNIZATIONS No Known Immunizations SOCIAL HISTORY Never Assessed REASON FOR VISIT Tyroid follow up, physical for work [employer] DALAL PLAN OF CARE Activity Details Follow Up 1 Year, prn Reason:CHM thyroid VITAL SIGNS Height 64.5 in 2017-11-21 Weight 160.4 lbs 2017-11-21 Temperature 97.5 degrees Fahrenheit 2017-11-21 Heart Rate 100 bpm 2017-11-21 Respiratory Rate 18 2017-11-21 BMI 27.10 kg/m2 2017-11-21 Blood pressure systolic 102 mmHg 2017-11-21 Blood pressure diastolic 72 mmHg 2017-11-21 MEDICATIONS Medication Instructions Dosage Frequency Start Date End Date Duration Status Levothyroxine Sodium 88 MCG Orally Once a day 1 tablet 24h 0 Active Zantac 150 MG Orally Once a day 1 tablet at bedtime 24h Active Flonase 50 MCG/DOSE Nasally Once a day 1 spray in each nostril 24h Jul, Active RESULTS No Results PROCEDURES Procedure Date Ordered Result Body Site ASSAY THYROID STIM HORMONE November 21, 2017 COMPLETE CBC W/AUTO DIFF WBC November 21, 2017 TB INTRADERMAL TEST November 21, 2017 LIPID PANEL November 21, 2017 COMPREHEN METABOLIC PANEL November 21, 2017 VENIPUNCT, ROUTINE* November 21, 2017 INSTRUCTIONS MEDICATIONS ADMINISTERED No Known Medications MEDICAL (GENERAL) HISTORY Type Description Date Medical History Hypothyroidism Surgical History skin graphs at age 6 from [facility] Surgical History hysterectomy, total with bilateral salpingo-oophorectomy (BSO ) s/p benign tumor Hospitalization History childbirth, surgery
--- OUTSIDE RECORDS SUMMARY | 2018-07-03 19:57 | XMS REPORT ---
Author Author NALDO OLIVEROS [facility] Address [address] [place] [address] Care Team Providers Care Manager Port Name Role Phone NALDO OLIVEROS Unavailable PROBLEMS Type Condition ICD9-CM Code JYK90-AG Code Onset Dates Condition Status SNOMED Code Problem Unspecified peripheral vertigo 386.10 Active 20152158 Problem Overweight 278.02 Active 976980323 Problem Unspecified breast screening V76.10 Active 224737619 Problem Health examination of defined subpopulation V70.5 Active 579476133 Problem Dysfunction of Eustachian tube 381.81 Active 48944949 Problem Unspecified hypothyroidism 244.9 Active 65439120 Problem Impacted cerumen 380.4 Active 46473595 Problem Other abnormal blood chemistry 790.6 Active 034069211 ALLERGIES Unknown Allergies SOCIAL HISTORY No smoking Hx information available PLAN OF CARE VITAL SIGNS MEDICATIONS Medication Instructions Dosage Frequency Start Date End Date Duration Status Levothyroxine Sodium 75 MCG Orally Once a day, NEEDS APPT BEFORE ANY FUERTHER REFILLS 1 tablet Active RESULTS No Results PROCEDURES No Known procedures IMMUNIZATIONS No Known Immunizations
--- OUTSIDE RECORDS SUMMARY | 2018-07-03 19:58 | XMS REPORT ---
Author Author NALDO OLIVEROS [facility] eClinicalWorks Address Unknown Phone Unavailable Care Team Providers Care Service Crew Supervisor Name Role Phone NALDO OLIVEROS CP Unavailable Allergies, Adverse Reactions, Alerts Substance Reaction Event Type N.K.D.A. Info Not Available Non Drug Allergy Problems Problem Type Condition Code Onset Dates Condition Status Assessment Hypothyroidism, unspecified type E03.9 Active Problem Overweight 278.02 Active Assessment Urge incontinence [...] Instructions Start Date End Date Status Dosage Ranitidine HCl [facility] [address]-11 75 MG Orally Twice a day December 07, 2014 1 capsule Oxybutynin Chloride [facility] [address]-01 5 MG Orally Twice a day 1 tablet Levothyroxine Sodium [facility] [address]-73 50 MCG Orally Once a day November 17, 2014 1 tablet Procedures Procedure Coding System Code Date Office Visit, Est Pt., Level 3 CPT-4 65953 Jun 12, 2015 VENIPUNCT, ROUTINE* CPT-4 21054 Jun 12, 2015 ASSAY THYROID STIM HORMONE CPT-4 78121 Jun 12, 2015 Vital Signs Date/Time: Jun 12, 2015 Temperature 97.5 F Weight 157.0 lbs Height 64.5 in BMI 26.53 Index Blood Pressure Diastolic 80 mmHg Blood Pressure Systolic 126 mmHg Cardiac Monitoring Heart Rate 80 bpm Results Name Result Date Reference Range Unit Abnormality Flag ROUTINE VENIPUNCTURE Summary Purpose eClinicalWorks Submission
--- OUTSIDE RECORDS SUMMARY | 2018-07-03 19:58 | XMS REPORT ---
Author Author NALDO OLIVEROS [facility] Address [address] [place] [address] Care Team Providers Care Validation Manager Name Role Phone ARLINLANCENALDO Unavailable PROBLEMS Type Condition ICD9-CM Code OTO49-AF Code Onset Dates Condition Status SNOMED Code Assessment Decreased GFR R94.4 Feb, Active 478114876 Problem Unspecified peripheral vertigo 386.10 Active 54922275 Problem Overweight 278.02 Active 010894074 Problem Unspecified breast screening V76.10 Active 074317965 Problem Health examination of defined subpopulation V70.5 Active 136212538 Problem Dysfunction of Eustachian tube 381.81 Active 20685320 Problem Unspecified hypothyroidism 244.9 Active 04371818 Problem Impacted cerumen 380.4 Active 45381173 Problem Other abnormal blood chemistry 790.6 Active 512531892 ALLERGIES Unknown Allergies SOCIAL HISTORY No smoking Hx information available PLAN OF CARE VITAL SIGNS MEDICATIONS Unknown Medications RESULTS Name Result Date Reference Range RENAL PROFILE 2016-03-15 Glucose, Serum 98 65-99 BUN 19 6-24 Creatinine, Serum 1.10 0.57-1.00 eGFR If NonAfricn Am 57 >59 eGFR If Africn Am 65 >59 BUN/Creatinine Ratio 17 9-23 Sodium, Serum 143 134-144 Potassium, Serum 4.2 3.5-5.2 Chloride, Serum 103 97-108 Carbon Dioxide, Total 28 18-29 Calcium, Serum 9.1 8.7-10.2 Phosphorus, Serum 3.5 2.5-4.5 Albumin, Serum 4.3 3.5-5.5 PROCEDURES Procedure Date Ordered Related Diagnosis Body Site RENAL FUNCTION PANEL Mar 15, 2016 VENIPUNCT, ROUTINE* Mar 15, 2016 IMMUNIZATIONS No Known Immunizations
--- OUTSIDE RECORDS SUMMARY | 2018-07-03 19:58 | XMS REPORT | Continuity of Care Document ---
Author Author [facility] Address Unknown Phone Unavailable Allergies There is no data. Medications There is no data. Problems Date Dx Coded Attending Type Code Diagnosis Diagnosed By 01/12/2008 611.72 LUMP OR MASS IN BREAST 01/12/2008 627.9 UNSPECIFIED MENOPAUSAL AND POSTMENOPAUSAL DISORDER 01/12/2008 799.81 LIBIDO DECREASED 01/12/2008 SHANTA SANCHEZ APRN 611.72 LUMP OR MASS IN BREAST 01/12/2008 SHANTA SANCHEZ APRN 627.9 UNSPECIFIED MENOPAUSAL AND POSTMENOPAUSAL DISORDER 01/12/2008 SHANTA SANCHEZ APRN 799.81 LIBIDO DECREASED 01/12/2008 611.72 LUMP OR MASS IN BREAST 01/12/2008 627.9 UNSPECIFIED MENOPAUSAL AND POSTMENOPAUSAL DISORDER 01/12/2008 799.81 LIBIDO DECREASED 01/12/2008 611.72 LUMP OR MASS IN BREAST 01/12/2008 627.9 UNSPECIFIED MENOPAUSAL AND POSTMENOPAUSAL DISORDER 01/12/2008 799.81 LIBIDO DECREASED 01/12/2008 611.72 LUMP OR MASS IN BREAST 01/12/2008 627.9 UNSPECIFIED MENOPAUSAL AND POSTMENOPAUSAL DISORDER 01/12/2008 799.81 LIBIDO DECREASED 01/12/2008 611.72 LUMP OR MASS IN BREAST 01/12/2008 627.9 UNSPECIFIED MENOPAUSAL AND POSTMENOPAUSAL DISORDER 01/12/2008 799.81 LIBIDO DECREASED 01/12/2008 TEX DE LA ROSA DO 611.72 LUMP OR MASS IN BREAST 01/12/2008 TEX DE LA ROSA DO 627.9 UNSPECIFIED MENOPAUSAL AND POSTMENOPAUSAL DISORDER 01/12/2008 TEX DE LA ROSA DO 799.81 LIBIDO DECREASED 01/12/2008 SHANTA SANCHEZ APRN 611.72 LUMP OR MASS IN BREAST 01/12/2008 SHANTA SANCHEZ APRN 627.9 UNSPECIFIED MENOPAUSAL AND POSTMENOPAUSAL DISORDER 01/12/2008 SHANTA SANCHEZ APRN 799.81 LIBIDO DECREASED 01/12/2008 SHANTA SANCHEZ APRN 611.72 LUMP OR MASS IN BREAST 01/12/2008 SHANTA SANCHEZ APRN 627.9 UNSPECIFIED MENOPAUSAL AND POSTMENOPAUSAL DISORDER 01/12/2008 SHANTA SANCHEZ APRN R 799.81 LIBIDO DECREASED 01/12/2008 LANCE DE LA ROSA DOA K 611.72 LUMP OR MASS IN BREAST 01/12/2008 RJ ROMAN TEX K 627.9 UNSPECIFIED MENOPAUSAL AND POSTMENOPAUSAL DISORDER 01/12/2008 RJ DO TEX K 799.81 LIBIDO DECREASED 01/12/2008 DE LA ROSA DO TEX K 611.72 LUMP OR MASS IN BREAST 01/12/2008 RJ ROMAN TEX K 627.9 UNSPECIFIED MENOPAUSAL AND POSTMENOPAUSAL DISORDER 01/12/2008 RJ ROMAN TEX K 799.81 LIBIDO DECREASED 01/12/2008 SHANTA SANCHEZ APRN 611.72 LUMP OR MASS IN BREAST 01/12/2008 SHANTA SANCHEZ APRN 627.9 UNSPECIFIED MENOPAUSAL AND POSTMENOPAUSAL DISORDER 01/12/2008 SHANTA SANCHEZ APRN 799.81 LIBIDO DECREASED 01/12/2008 NALDO OLIVEROS APRN E 611.72 LUMP OR MASS IN BREAST 01/12/2008 NALDO OLIVEROS APRN E 627.9 UNSPECIFIED MENOPAUSAL AND POSTMENOPAUSAL DISORDER 01/12/2008 NALDO OLIVEROS APRN E 799.81 LIBIDO DECREASED 01/12/2008 TEX DE LA ROSA DO K 611.72 LUMP OR MASS IN BREAST 01/12/2008 RJ ROMAN TEX K 627.9 UNSPECIFIED MENOPAUSAL AND POSTMENOPAUSAL DISORDER 01/12/2008 RJ ROMAN TEX K 799.81 LIBIDO DECREASED 11/10/2008 V07.4 HORMONE REPLACEMENT THERAPY (POSTMENOPAUSAL) 11/10/2008 SHANTA SANCHEZ APRN V07.4 HORMONE REPLACEMENT THERAPY (POSTMENOPAUSAL) 11/10/2008 V07.4 taking female hormones for postmenopausal HRT 11/10/2008 V07.4 taking female hormones for postmenopausal HRT 11/10/2008 V07.4 taking female hormones for postmenopausal HRT 11/10/2008 V07.4 taking female hormones for postmenopausal HRT 11/10/2008 TEX DE [place] ROSA DO V07.4 taking female hormones for postmenopausal HRT 11/10/2008 SHANTA SANCHEZ APRN V07.4 taking female hormones for postmenopausal HRT 11/10/2008 SHANTA SANCHEZ APRN V07.4 taking female hormones for postmenopausal HRT 11/10/2008 TEX DE [place] ROSA DO V07.4 taking female hormones for postmenopausal HRT 11/10/2008 TEX DE [place] ROSA DO V07.4 taking female hormones for postmenopausal HRT 11/10/2008 SHANTA SANCHZE APRN R V07.4 taking female hormones for postmenopausal HRT 11/10/2008 NALDO OLIVEROS APRN V07.4 taking female hormones for postmenopausal HRT 11/10/2008 TEX DE [place] ROSA DO K V07.4 taking female hormones for postmenopausal HRT 02/08/2009 477.9 ALLERGIC RHINITIS CAUSE UNSPECIFIED 02/08/2009 528.00 STOMATITIS AND MUCOSITIS UNSPECIFIED 02/08/2009 SHANTA SANCHEZ APRN 477.9 ALLERGIC RHINITIS CAUSE UNSPECIFIED 02/08/2009 SANCHEZ SHANTA WINKLER 528.00 STOMATITIS AND MUCOSITIS UNSPECIFIED 02/08/2009 477.9 ALLERGIC RHINITIS CAUSE UNSPECIFIED 02/08/2009 528.00 STOMATITIS AND MUCOSITIS UNSPECIFIED 02/08/2009 477.9 ALLERGIC RHINITIS CAUSE UNSPECIFIED 02/08/2009 528.00 STOMATITIS AND MUCOSITIS UNSPECIFIED 02/08/2009 477.9 ALLERGIC RHINITIS CAUSE UNSPECIFIED 02/08/2009 528.00 STOMATITIS AND MUCOSITIS UNSPECIFIED 02/08/2009 477.9 ALLERGIC RHINITIS CAUSE UNSPECIFIED 02/08/2009 528.00 STOMATITIS AND MUCOSITIS UNSPECIFIED 02/08/2009 TEX DE LA ROSA DO 477.9 ALLERGIC RHINITIS CAUSE UNSPECIFIED 02/08/2009 TEX DE LA ROSA DO 528.00 STOMATITIS AND MUCOSITIS UNSPECIFIED 02/08/2009 SHANTA SANCHEZ APRN 477.9 ALLERGIC RHINITIS CAUSE UNSPECIFIED 02/08/2009 SANCHEZ SHANTA WINKLER 528.00 STOMATITIS AND MUCOSITIS UNSPECIFIED 02/08/2009 SANCHEZ SHANTA WINKLER 477.9 ALLERGIC RHINITIS CAUSE UNSPECIFIED 02/08/2009 SANCHEZ SHANTA WINKLER 528.00 STOMATITIS AND MUCOSITIS UNSPECIFIED 02/08/2009 DE LA ROSA DO, TEX K 477.9 ALLERGIC RHINITIS CAUSE UNSPECIFIED 02/08/2009 DE LA ROSA DO, TEX K 528.00 STOMATITIS AND MUCOSITIS UNSPECIFIED 02/08/2009 DE LA ROSA DO, TEX K 477.9 ALLERGIC RHINITIS CAUSE UNSPECIFIED 02/08/2009 DE LA ROSA DO, TEX K 528.00 STOMATITIS AND MUCOSITIS UNSPECIFIED 02/08/2009 SHANTA SANCHEZ APRN 477.9 ALLERGIC RHINITIS CAUSE UNSPECIFIED 02/08/2009 SHANTA SANCHEZ APRN 528.00 STOMATITIS AND MUCOSITIS UNSPECIFIED 02/08/2009 HELLNALDO BAUTISTA APRN 477.9 ALLERGIC RHINITIS CAUSE UNSPECIFIED 02/08/2009 NALDO OLIVEROS APRN E 528.00 STOMATITIS AND MUCOSITIS UNSPECIFIED 02/08/2009 DE LA ROSA DO, TEX K 477.9 ALLERGIC RHINITIS CAUSE UNSPECIFIED 02/08/2009 DE LA ROSA DO, TEX K 528.00 STOMATITIS AND MUCOSITIS UNSPECIFIED 12/05/2010 692.9 CONTACT DERMATITIS AND OTHER ECZEMA UNSPECIFIED CAUSE 12/05/2010 SHANTA SANCHEZ APRN 692.9 CONTACT DERMATITIS AND OTHER ECZEMA UNSPECIFIED CAUSE 12/05/2010 692.9 CONTACT DERMATITIS AND OTHER ECZEMA UNSPECIFIED CAUSE 12/05/2010 692.9 CONTACT DERMATITIS AND OTHER ECZEMA UNSPECIFIED CAUSE 12/05/2010 692.9 CONTACT DERMATITIS AND OTHER ECZEMA UNSPECIFIED CAUSE 12/05/2010 692.9 CONTACT DERMATITIS AND OTHER ECZEMA UNSPECIFIED CAUSE 12/05/2010 LANCE DE LA ROSA DOA K 692.9 CONTACT DERMATITIS AND OTHER ECZEMA UNSPECIFIED CAUSE 12/05/2010 SHANTA SANCHEZ APRN 692.9 CONTACT DERMATITIS AND OTHER ECZEMA UNSPECIFIED CAUSE 12/05/2010 SHNATA SANCHEZ APRN 692.9 CONTACT DERMATITIS AND OTHER ECZEMA UNSPECIFIED CAUSE 12/05/2010 DE LA ROSA DO TEX K 692.9 CONTACT DERMATITIS AND OTHER ECZEMA UNSPECIFIED CAUSE 12/05/2010 DE LA ROSA DO, TEX K 692.9 CONTACT DERMATITIS AND OTHER ECZEMA UNSPECIFIED CAUSE 12/05/2010 SHANTA SANCHEZ APRN 692.9 CONTACT DERMATITIS AND OTHER ECZEMA UNSPECIFIED CAUSE 12/05/2010 NALDO OLIVEROS APRN 692.9 CONTACT DERMATITIS AND OTHER ECZEMA UNSPECIFIED CAUSE 12/05/2010 TEX DE LA ROSA DO 692.9 CONTACT DERMATITIS AND OTHER ECZEMA UNSPECIFIED CAUSE 11/26/2011 V76.10 BREAST CANCER SCREENING 11/26/2011 SHANTA SANCHEZ APRN V76.10 BREAST CANCER SCREENING 11/26/2011 V76.10 BREAST CANCER SCREENING 11/26/2011 V76.10 BREAST CANCER SCREENING 11/26/2011 V76.10 BREAST CANCER SCREENING 11/26/2011 V76.10 BREAST CANCER SCREENING 11/26/2011 TEX DE LA ROSA DO V76.10 BREAST CANCER SCREENING 11/26/2011 SHANTA SANCHEZ APRN V76.10 BREAST CANCER SCREENING 11/26/2011 SHANTA SANCHEZ APRN V76.10 BREAST CANCER SCREENING 11/26/2011 TEX DE LA ROSA DO V76.10 BREAST CANCER SCREENING 11/26/2011 TEX DE LA ROSA DO V76.10 BREAST CANCER SCREENING 11/26/2011 SHANTA SANCHEZ APRN V76.10 BREAST CANCER SCREENING 11/26/2011 NALDO OLIVEROS APRN V76.10 BREAST CANCER SCREENING 11/26/2011 TEX DE [place] ROSA DO V76.10 BREAST CANCER SCREENING 12/30/2011 380.4 CERUMEN IMPACTION - LEFT EAR 12/30/2011 SHANTA SANCHEZ APRN 380.4 CERUMEN IMPACTION - LEFT EAR 12/30/2011 380.4 CERUMEN IMPACTION - LEFT EAR 12/30/2011 380.4 CERUMEN IMPACTION - LEFT EAR 12/30/2011 380.4 CERUMEN IMPACTION - LEFT EAR 12/30/2011 380.4 CERUMEN IMPACTION - LEFT EAR 12/30/2011 TEX DE LA ROSA DO 380.4 CERUMEN IMPACTION - LEFT EAR 12/30/2011 SHANTA SANCHEZ APRN 380.4 CERUMEN IMPACTION - LEFT EAR 12/30/2011 SHANTA SANCHEZ APRN 380.4 CERUMEN IMPACTION - LEFT EAR 12/30/2011 TEX DE LA ROSA DO 380.4 CERUMEN IMPACTION - LEFT EAR 12/30/2011 TEX DE LA ROSA DO 380.4 CERUMEN IMPACTION - LEFT EAR 12/30/2011 SHANTA SANCHEZ APRN 380.4 CERUMEN IMPACTION - LEFT EAR 12/30/2011 NALDO OLIVEROS APRN 380.4 CERUMEN IMPACTION - LEFT EAR 12/30/2011 TEX DE LA ROSA DO 380.4 CERUMEN IMPACTION - LEFT EAR 01/17/2012 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 01/17/2012 SHANTA SANCHEZ APRN 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 01/17/2012 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 01/17/2012 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 01/17/2012 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 01/17/2012 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 01/17/2012 TEX DE LA ROSA DO 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 01/17/2012 SHANTA SANCHEZ APRN 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 01/17/2012 SHANTA SANCHEZ APRN 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 01/17/2012 TEX DE LA ROSA DO 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 01/17/2012 TEX DE LA ROSA DO 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 01/17/2012 SHANTA SANCHEZ APRN 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 01/17/2012 NALDO OLIVEROS APRN 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 01/17/2012 TEX DE LA ROSA DO 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 05/30/2012 SHANTA SANCHEZ APRN V70.5 PREEMPLOYMENT/PRESCHOOL EXAM 05/30/2012 V70.5 PREEMPLOYMENT/ PRESCHOOL EXAM 05/30/2012 V70.5 PREEMPLOYMENT/ PRESCHOOL EXAM 05/30/2012 V70.5 PREEMPLOYMENT/ PRESCHOOL EXAM 05/30/2012 V70.5 PREEMPLOYMENT/ PRESCHOOL EXAM 05/30/2012 TEX DE [place] ROSA DO V70.5 PREEMPLOYMENT/PRESCHOOL EXAM 05/30/2012 SHANTA SANCHEZ APRN V70.5 PREEMPLOYMENT/PRESCHOOL EXAM 05/30/2012 SHANTA SANCHEZ APRN V70.5 PREEMPLOYMENT/PRESCHOOL EXAM 05/30/2012 TEX DE [place] ROSA DO V70.5 PREEMPLOYMENT/PRESCHOOL EXAM 05/30/2012 TEX DE [place] ROSA DO V70.5 PREEMPLOYMENT/PRESCHOOL EXAM 05/30/2012 SHANTA SANCHEZ APRN V70.5 PREEMPLOYMENT/PRESCHOOL EXAM 05/30/2012 NALDO OLIVEROS APRN V70.5 PREEMPLOYMENT/PRESCHOOL EXAM 05/30/2012 TEX DE [place] ROSA DO V70.5 PREEMPLOYMENT/PRESCHOOL EXAM 11/17/2012 278.02 Overweight 11/17/2012 278.02 Overweight 11/17/2012 278.02 Overweight 11/17/2012 278.02 Overweight 11/17/2012 TEX DE [place] ROSA DO K 278.02 Overweight 11/17/2012 SHANTA SANCHEZ APRN 278.02 Overweight 11/17/2012 SHANTA SANCHEZ APRN 278.02 Overweight 11/17/2012 TEX DE LA ROSA DO 278.02 Overweight 11/17/2012 TEX DE [place] ROSA DO K 278.02 Overweight 11/17/2012 SHANTA SANCHEZ APRN 278.02 Overweight 11/17/2012 NALDO OLIVEROS APRN 278.02 Overweight 11/17/2012 TEX DE LA ROSA DO 278.02 Overweight 02/02/2013 790.6 ABNORMAL BLOOD CHEMISTRY 02/02/2013 TEX DE LA ROSA DO 790.6 ABNORMAL BLOOD CHEMISTRY 02/02/2013 SHANTA SANCHEZ APRN 790.6 ABNORMAL BLOOD CHEMISTRY 02/02/2013 SHANTA SANCHEZ APRN 790.6 ABNORMAL BLOOD CHEMISTRY 02/02/2013 TEX DE LA ROSA DO 790.6 ABNORMAL BLOOD CHEMISTRY 02/02/2013 TEX DE LA ROSA DO 790.6 ABNORMAL BLOOD CHEMISTRY 02/02/2013 SHANTA SANCHEZ APRN 790.6 ABNORMAL BLOOD CHEMISTRY 02/02/2013 NALDO OLIVEROS APRN 790.6 ABNORMAL BLOOD CHEMISTRY 02/02/2013 TEX DE LA ROSA DO 790.6 ABNORMAL BLOOD CHEMISTRY 05/19/2013 SHANTA SANCHEZ APRN 244.9 HYPOTHYROIDISM 05/19/2013 SHANTA SANCHEZ APRN 386.10 VERTIGO, PERIPHERAL UNSPECIFIED 05/19/2013 SHANTA SANCHEZ APRN 244.9 HYPOTHYROIDISM 05/19/2013 SHANTA SANCHEZ APRN 386.10 VERTIGO, PERIPHERAL UNSPECIFIED 05/19/2013 RJ ROMANLANCEA K 244.9 HYPOTHYROIDISM 05/19/2013 RJ ROMANTEX K 386.10 VERTIGO, PERIPHERAL UNSPECIFIED 05/19/2013 DE LA ROSA DO TEX K 244.9 HYPOTHYROIDISM 05/19/2013 DE LA ROSA LANCEA K 386.10 VERTIGO, PERIPHERAL UNSPECIFIED 05/19/2013 SHANTA SANCHEZ APRN 244.9 HYPOTHYROIDISM 05/19/2013 SANCHEZSHANTA BRASWELL APRN 386.10 VERTIGO, PERIPHERAL UNSPECIFIED 05/19/2013 MILLINALDO BAUTISTA APRN E 244.9 HYPOTHYROIDISM 05/19/2013 ERVINNALDO BARRETO APRN E 386.10 VERTIGO, PERIPHERAL UNSPECIFIED 05/19/2013 RJ ROMANLANCEA K 244.9 HYPOTHYROIDISM 05/19/2013 RJ ROMANLANCEA K 386.10 VERTIGO, PERIPHERAL UNSPECIFIED Procedures Code [place] [address] TB TEST INTRADERMAL 05/30/2012 43701 ROUTINE VENIPUNCTURE 11/18/2012 86385 CMP 11/18/2012 43217 LIPID PANEL 11/18/2012 65279 A1C (RML) 11/18/2012 81563 TSH 11/18/2012 33449 CBC 11/18/2012 77906 ROUTINE VENIPUNCTURE 12/09/2012 20392 T4 FREE 12/09/2012 55866 TSH 12/09/2012 05039 T3 TOTAL 12/09/2012 54453 ROUTINE VENIPUNCTURE 03/29/2013 15766 TSH 03/29/2013 95652 ROUTINE VENIPUNCTURE 05/24/2013 75374 TSH 05/25/2013 95242 ROUTINE VENIPUNCTURE 10/13/2013 44919 TSH 10/14/2013 70273 ROUTINE VENIPUNCTURE 04/25/2014 60466 TSH 04/26/2014 52520 ROUTINE VENIPUNCTURE 06/14/2014 52602 CBC 06/14/2014 [id number] GFR CALC (RESULT ONLY) 06/14/2014 65598 CMP 06/14/2014 43910 LIPID PANEL 06/14/2014 Results Test Result Range THYROID ANALYZER - 11/21/17 12:56 TSH 0.57 mIU/L 0.40-4.50 Encounters ACCT No. Visit Date/Time Discharge Status Pt. Type Provider Facility Loc./Unit Complaint [id number] 06/14/2014 08:57:00 06/14/2014 23:59:59 CLS Outpatient RJ ROMANTEX [id number] 05/23/2014 17:08:00 05/23/2014 23:59:59 CLS Outpatient NALDO OLIVEROS APRN [id number] 04/25/2014 16:26:00 04/25/2014 23:59:59 CLS Outpatient SANCHEZSHANTA BRASWELL APRN [id number] 12/21/2013 15:02:00 12/21/2013 23:59:59 CLS Outpatient TEX DE LA RSOA DO [id number] 10/25/2013 16:07:00 10/25/2013 23:59:59 CLS Outpatient TEX DE LA ROSA DO [id number] 10/13/2013 16:52:00 10/13/2013 23:59:59 CLS Outpatient SHANTA SANCHEZ APRN [id number] 05/24/2013 16:03:00 05/24/2013 23:59:59 CLS Outpatient SHANTA SANCHEZ APRN [id number] 03/29/2013 16:26:00 03/29/2013 23:59:59 CLS Outpatient TEX DE LA ROSA DO [id number] 05/30/2012 12:48:00 05/30/2012 23:59:59 CLS Outpatient SHANTA SANCHEZ APRN [id number] 01/17/2012 13:46:00 01/17/2012 23:59:59 CLS Outpatient [id number] 01/27/2013 09:02:00 Document Registration [id number] 12/09/2012 09:43:00 Document Registration [id number] 11/18/2012 08:32:00 Document Registration [id number] 11/17/2012 10:30:00 Document Registration [id number] 06/26/2018 10:00:00 06/26/2018 23:59:59 [facility] [id number] 11/21/2017 12:00:00 Document Registration
--- OUTSIDE RECORDS SUMMARY | 2018-07-03 19:58 | XMS REPORT ---
Author Author SHANTA SANCHEZ [facility] Address [address] [place] [address] Care Team Providers Care International Marketing Intern Name Role Phone SHANTA SANCHEZ Unavailable PROBLEMS Type Condition ICD9-CM Code [id number] Code Onset Dates Condition Status SNOMED Code Problem Other abnormal blood chemistry 790.6 Active 434673031 Problem Dysfunction of Eustachian tube 381.81 Active 77281178 Problem Unspecified peripheral vertigo 386.10 Active 77684112 Problem Unspecified breast screening V76.10 Active 910811604 Problem Health examination of defined subpopulation V70.5 Active 849743827 Problem Mixed hyperlipidemia E78.2 Active 096000789 Problem Acquired hypothyroidism E03.9 Active 919448409 Problem Overweight 278.02 Active 311362194 Problem Impacted cerumen 380.4 Active 27186927 Problem Hx of hysterectomy, total Z90.710 Active 493514537 Problem Unspecified hypothyroidism 244.9 Active 03775225 ALLERGIES No Known Allergies SOCIAL HISTORY No smoking Hx information available PLAN OF CARE VITAL SIGNS MEDICATIONS Medication Instructions Dosage Frequency Start Date End Date Duration Status Oxybutynin Chloride 5 mg Orally Twice a day, must come to appt for further refills 1 tablet Jun, 0 days Active RESULTS No Results PROCEDURES No Known procedures IMMUNIZATIONS No Known Immunizations
[2018-07-03 21:48] LABS: BASOPHILS % (AUTO) 0 % (0-10); EOSINOPHILS # (AUTO) 0.1 10^3/uL (0.0-0.3); EOSINOPHILS % (AUTO) 2 % (0-10); HEMATOCRIT 36 % (35-52); HEMOGLOBIN 11.7 G/DL (11.5-16.0); LYMPHOCYTES # (AUTO) 1.9 X 10^3 (1.0-4.0); LYMPHOCYTES % (AUTO) 22 % (12-44); MEAN CORPUSCULAR HEMOGLOBIN 30 PG (25-34); MEAN CORPUSCULAR HGB CONC 33 G/DL (32-36); MEAN CORPUSCULAR VOLUME 90 FL (80-99); MEAN PLATELET VOLUME 9.9 FL (7.4-10.4); MONOCYTES # (AUTO) 0.8 X 10^3 (0.0-1.0); MONOCYTES % (AUTO) 9 % (0-12); NEUTROPHILS # (AUTO) 5.8 X 10^3 (1.8-7.8); NEUTROPHILS % (AUTO) 67 % (42-75); PLATELET COUNT 321 10^3/uL (130-400); RED BLOOD COUNT 3.97 10^6/uL (4.35-5.85); RED CELL DISTRIBUTION WIDTH 11.9 % (10.0-14.5); WHITE BLOOD COUNT 8.6 10^3/uL (4.3-11.0)
[2018-07-03] MEDS ORDERED: HYDROcodone/APAP 7.5 MG/325 MG (LORTAB, LORCET PLUS) TABLET PO STA (21:50)
--- NOTE | 2018-07-03 22:04 | Diagnostic Imaging Report ---
EXAM: Knee, left, 3 views. INDICATION: Left knee pain and redness. COMPARISON: None. FINDINGS: No fracture or malalignment. No suspicious osteoblastic or lytic lesions. No left knee joint effusion. Soft tissue shadows are unremarkable. IMPRESSION: Negative left knee radiographs. Dictated by: Dictated on workstation # [id number]
[2018-07-03 22:07] LABS: ALANINE AMINOTRANSFERASE 36 U/L (0-55); ALBUMIN 3.9 GM/DL (3.2-4.5); ALKALINE PHOSPHATASE 141 U/L (40-136); BILIRUBIN,TOTAL 0.3 MG/DL (0.1-1.0); BUN/CREATININE RATIO 17; CALCIUM 8.7 MG/DL (8.5-10.1); CARBON DIOXIDE 23 MMOL/L (21-32); CHLORIDE 107 MMOL/L (98-107); GFR ESTIMATED > 60; GLUCOSE 103 MG/DL (70-105); POTASSIUM 3.8 MMOL/L (3.6-5.0); SODIUM 142 MMOL/L (135-145); TOTAL PROTEIN 7.6 GM/DL (6.4-8.2)
[2018-07-03 22:11] LABS: ERYTHROCYTE SEDIMENTATION RATE 75 MM/HR (0-30)
--- NOTE | 2018-07-03 22:19 | ED Lower Extremity ---
General Chief Complaint: Lower Extremity Stated Complaint: L KNEE PAIN/REDNESS/SWELLING Nursing Triage Note: ambulated to room 9 with a limp. States that on 06/23/18 she bent down and had stabbing pains in left knee. red and swollen almost immediately. States that she went to [facility] last week and they xray it and started her on declofidac and had her ice it. Cont to have swelling and pain. Went to [facility] today and they referred her here. Left knee is very swollen and red to posterior portion of patella. Skin is tight and hot from mid knee to upper calf. Is able to bend knee Nursing Sepsis Screen: No Definite Risk History of Present Illness Date Seen by Provider: Jul 03, 2018 Time Seen by Provider: 21:25 Initial Comments 58-year-old female presents for left knee pain, erythema and swelling. She reports approximately 10 days ago she was squatting down when she felt a stabbing pain and pop in her left knee. Since then she's been having symptoms. She has been seen on 2 occasions with no definitive treatment other than diclofenac and no improvement. The erythema has been present since she first experienced symptoms. She denies diaphoresis or fever. She's had no previous surgeries, injuries, or injections to the left knee. Pain/Injury Location: right knee Method of Injury: unknown Allergies and Home Medications Allergies Coded Allergies: No Known Drug Allergies (Unverified , 07/03/18) Home Medications Cephalexin 500 Mg Tablet, 500 MG PO QID Prescribed by: DALIA COSME on 07/03/182238 Hydrocodone Bit/Acetaminophen 1 Tab Tab, 1-2 EACH PO Q6H PRN for PAIN-MODERATE Prescribed by: DALIA COSME on 07/03/182238 Patient Home Medication List Home Medication List Reviewed: Yes Review of Systems Constitutional: no symptoms reported, see HPI Musculoskeletal: see HPI, joint pain (left knee) Skin: see HPI, change in color (erythema left knee) All Other Systems Reviewed Negative Unless Noted: Yes Past Nxnerho-Ucrkob-Wqnwji Hx Past Med/Social Hx: Reviewed Nursing Past Med/Soc Hx Patient Social History Alcohol Use: Denies Use Recreational Drug Use: No Smoking Status: Never a Smoker 2nd Hand Smoke Exposure: No Recent Foreign Travel: No Contact w/Someone Who Travel: No Recent Infectious Disease Expo: No Recent Hopitalizations: No Physical Abuse: No Sexual Abuse: No Mistreated: No Fear: No Seasonal Allergies Seasonal Allergies: No Past Medical History Surgeries: Yes Abdominal, Hysterectomy Respiratory: No Cardiac: No Neurological: No Genitourinary: No Gastrointestinal: No Musculoskeletal: No Endocrine: Yes Hypothyroidsim HEENT: No Cancer: No Psychosocial: No Integumentary: No Blood Disorders: No Adverse Reaction/Blood Tranf: No Physical Exam Vital Signs Vital Signs - First Documented 07/03/18 21:22 Temp 98.8 Pulse 111 Resp 16 B/P (MAP) 129/99 (109) Pulse Ox 94 Capillary Refill : Less Than 3 Seconds Height, Weight, BMI Height: 5'4.00" Weight: 163lbs. oz. 73.456426bk; BMI Method:Stated General Appearance: WD/WN, no apparent distress Cardiovascular: normal peripheral pulses, regular rate, rhythm Respiratory: chest non-tender, lungs clear Gastrointestinal: normal bowel sounds, non tender, soft Knees: left knee normal range of motion, left knee pain, left knee soft tissue tenderness (Errythema, ant, just distal to knee joint. Warmth and inflammation noted. ), left knee swelling (Distal to knee joint, no effusion in joint. Soft tissue swelling, proximal tibia, anterior.), left knee other (no medial or lateral laxity, negative anterior drawer, posterior drawer and [place]. No popliteal cyst. Negative Homans sign. Pedal pulses 2+ and symmetric) Neurologic/Tendon: normal sensation, normal motor functions, normal tendon functions Neurologic/Psychiatric: no motor/sensory deficits, alert, normal mood/affect, oriented x 3 Lymphatic: no adenopathy; No inguinal node tender (L) Progress/Results/Core Measures Results/Orders Lab Results Laboratory Tests Test 07/03/18 21:40 Range/Units White Blood Count 8.6 4.3-11.0 10^3/uL Red Blood Count 3.97 L 4.35-5.85 10^6/uL Hemoglobin 11.7 11.5-16.0 G/DL Hematocrit 36 35-52 % Mean Corpuscular Volume 90 80-99 FL Mean Corpuscular Hemoglobin 30 25-34 PG Mean Corpuscular Hemoglobin Concent 33 32-36 G/DL Red Cell Distribution Width 11.9 10.0-14.5 % Platelet Count 321 130-400 10^3/uL Mean Platelet Volume 9.9 7.4-10.4 FL Neutrophils (%) (Auto) 67 42-75 % Lymphocytes (%) (Auto) 22 12-44 % Monocytes (%) (Auto) 9 0-12 % Eosinophils (%) (Auto) 2 0-10 % Basophils (%) (Auto) 0 0-10 % Neutrophils # (Auto) 5.8 1.8-7.8 X 10^3 Lymphocytes # (Auto) 1.9 1.0-4.0 X 10^3 Monocytes # (Auto) 0.8 0.0-1.0 X 10^3 Eosinophils # (Auto) 0.1 0.0-0.3 10^3/uL Basophils # (Auto) 0.0 0.0-0.1 10^3/uL Erythrocyte Sedimentation Rate 75 H 0-30 MM/HR Sodium Level 142 135-145 MMOL/L Potassium Level 3.8 3.6-5.0 MMOL/L Chloride Level 107 98-107 MMOL/L Carbon Dioxide Level 23 21-32 MMOL/L Anion Gap 12 5-14 MMOL/L Blood Urea Nitrogen 15 7-18 MG/DL Creatinine 0.90 0.60-1.30 MG/DL Estimat Glomerular Filtration Rate > 60 BUN/Creatinine Ratio 17 Glucose Level 103 70-105 MG/DL Lactic Acid Level 0.72 0.50-2.00 MMOL/L Calcium Level 8.7 8.5-10.1 MG/DL Corrected Calcium 8.8 8.5-10.1 MG/DL Total Bilirubin 0.3 0.1-1.0 MG/DL Aspartate Amino Transf (AST/SGOT) 36 H 5-34 U/L Alanine Aminotransferase (ALT/SGPT) 36 0-55 U/L Alkaline Phosphatase 141 H 40-136 U/L C-Reactive Protein High Sensitivity 7.70 H 0.00-0.50 MG/DL Total Protein 7.6 6.4-8.2 GM/DL Albumin 3.9 3.2-4.5 GM/DL My Orders Orders - DALIA COSME [employer] Knee, Left, 3 Views (07/03/18 21:02) Cbc With Automated Diff (07/03/18 21:31) Comprehensive Metabolic Panel (07/03/18 21:31) Hs C Reactive Protein (07/03/18 21:31) Erythrocyte Sedimentation Rate (07/03/18 21:31) Lactic Acid Analyzer (07/03/18 21:32) Hydrocodone/Apap 7.5/325 Tab (Lortab 7. (07/03/18 21:50) Rx-Cephalexin Capsule (Rx-Keflex Capsule (07/03/18 22:39) Vital Signs/I&O 07/03/18 07/03/18 21:22 22:58 Temp 98.8 Pulse 111 99 Resp 16 18 B/P (MAP) 129/99 (109) 130/71 (90) Pulse Ox 94 99 Blood Pressure Mean: 109 Progress Progress Note : Time: 21:25 Progress Note Patient seen and evaluated, we'll obtain x-rays of the right knee and labs to rule out a septic arthritis versus cellulitis distal to the knee joint. 2199 x-ray show no fracture, dislocation or acute injury to the knee joint. Labs show a normal WBC, but elevated ESR and CRP. The knee has no effusion so aspiration not recommended. 2214 discussed all findings with the patient, recommended treatment for cellulitis, crutches and rest for the knee through the weekend. If symptoms are not improving she is to see orthopedics early next week. Discharge instructions and return precautions reviewed with the patient and her family. All questions answered. Diagnostic Imaging Diagonstic Imaging: Xray Plain Films/CT/US/NM/MRI: knee Comments NAME: [facility] REC#: [id number] PT STATUS: REG ER : 1960 PHYSICIAN: DALIA COSME ADMIT DATE: 07/03/18/ER Draft Date of Exam:07/03/18 KNEE, LEFT, 3 VIEWS EXAM: Knee, left, 3 views. INDICATION: Left knee pain and redness. COMPARISON: None. FINDINGS: No fracture or malalignment. No suspicious osteoblastic or lytic lesions. No left knee joint effusion. Soft tissue shadows are unremarkable. IMPRESSION: Negative left knee radiographs. Dictated on workstation # [id number] Dict: 07/03/182201 Trans: 07/03/182203 [facility] [id number] Interpreted by: JUSTIN FLORES MD Electronically signed by: Reviewed: Reviewed by Me Departure Impression Primary Impression: Left knee pain Qualified Codes: M25.562 - Pain in left knee Additional Impression: Cellulitis of left knee Disposition: 01 HOME, SELF-CARE Condition: Improved Departure-Patient Inst. Decision time for Depature: 22:35 Referrals: [facility] (PCP/Family) Primary Care Physician Patient Instructions: Cellulitis (Skin Infection), Adult (DC), Knee Pain (DC) Add. Discharge Instructions: Ice to left knee 20 minutes every 2 hours while awake. Gentle range of motion to the left knee, and move left ankle 10-20 times every hour. Use crutches at all times when ambulatory, weightbearing as tolerated left lower extremity. If symptoms are not improving or worsen follow-up with orthopedics, Ortho 4 States. Take antibiotic as prescribed. You may continue the diclofenac or you may discontinue that and take ibuprofen 600 mg every 8 hours. For more severe pain, you may take the hydrocodone every 6-8 hours. Do not take Tylenol if taking the hydrocodone. Return to emergency department if symptoms are not improving, fever greater than 101 not relieved by Tylenol or ibuprofen, or new problems. All discharge instructions reviewed with patient and/or family. Voiced understanding. Scripts Hydrocodone Bit/Acetaminophen (Hydrocodone/Acetaminophen 5/325mg Tablet) 1 Tab Tab 1-2 EACH PO Q6H PRN for PAIN-MODERATE MDD 10, #20 TAB 0 Refills Prov: DALIA COSME 07/03/18 Cephalexin (Cephalexin) 500 Mg Tablet 500 MG PO QID, #28 TAB 0 Refills Prov: DALIA COSME 07/03/18 DALIA COSME Jul 03, 2018 22:19
[2018-07-03] MEDS ORDERED: ACHD5005 PO (22:39)
[2018-07-03] MEDS ORDERED: RX-CEPHALEXIN (KEFLEX) 250 MG CAP PPK#4 PO STA (22:39)
[2018-07-03] MEDS ORDERED: CEPH500T PO (22:39)
[2018-07-03 22:58] VITALS: BP 130/71
== END 2018-07-03 22:59 | disposition home or self-care (01) ==
LOC: EDUNIT# 19:50 → ER 19:52
DX: L03.116 Cellulitis of left lower limb (principal); E03.9 Hypothyroidism, unspecified; Z90.710 Acquired absence of both cervix and uterus
CPT/HCPCS: 36415; 73562; 80053; 83605; 85025; 85652; 86141

== ENCOUNTER → 2019-12-01 | Outpatient (CLI) | payer BC ==
[~2019-12-01] MED LIST: ACHD5005 PO; CEPH500T PO
--- NOTE | 2019-12-02 10:37 | Diagnostic Imaging Report ---
INDICATION: Routine screening. Comparison is made with prior mammogram 01/27/2012 and 01/22/2011. 2-D and 3-D bilateral screening mammography was performed with CAD. Both breasts are heterogeneously dense, limiting the sensitivity of mammography. Fibronodular parenchymal pattern is again noted. There has been decrease in size of the circumscribed lesion in the lateral left breast since prior mammogram. No spiculated mass or malignant appearing microcalcifications are seen. Axillae are unremarkable. IMPRESSION: BI-RADS Category 2 No mammographic features suspicious for malignancy are identified. ACR BI-RADS Category 2: Benign findings. Result letter will be mailed to the patient. Note: At least 10% of breast cancer is not imaged by mammography. Dictated by: Dictated on workstation # [id number]
== END ==
LOC: RAD 14:47
PROVIDERS: ATTEND Nurse Practitioner Family
DX: Z12.31 Encounter for screening mammogram for malignant neoplasm of breast (principal)
CPT/HCPCS: 77063; 77067